=== PATIENT | male | born 1945 | race Two or more races ===

== ENCOUNTER 2019-11-19 06:49 | Inpatient (IN) | payer OTHER, SELFPAY ==
[~2019-11-19] VITALS: Ht 160 cm; Wt 87.0 kg
[2019-11-19] MEDS ORDERED: DEXTROSE (50%) 50ML SYRG IV ONE ×2 (07:15→11:15)
[2019-11-19] MEDS ORDERED: ACETAMINOPHEN 325 MG TAB PO ONE (07:15)
[2019-11-19] MEDS ORDERED: AZITHROMYCIN 500MG/ 250ML 250 ML IV ONE (07:15)
[2019-11-19] MEDS ORDERED: cefTRIAXone 1GM/50ML D5W 50 ML IV ONE (07:15)
[2019-11-19 07:47] LABS: Lactic Acid w/Reflex 4.4 mmol/L (0.4-2.0)
[2019-11-19 09:50] LABS: Basophils # (auto) 0 10 ^3/uL (0-0.2); Eosinophils # (auto) 0 10 ^3/uL (0-0.8); Hematocrit 32.3 % (41.0-53.0); Hemoglobin 11.1 g/dL (13.5-17.5); Monocytes # (auto) 0.1 10 ^3/uL (0-1.3); Neutrophils # (auto) 0.3 10 ^3/uL (1.6-8.6)
[2019-11-19 09:52] LABS: Basophils % (auto) 0.8 % (0.0-2.0); Lymphocytes # (auto) 0.4 10 ^3/uL (0.4-5.4); Lymphocytes % (auto) 51.8 % (10.0-50.0); Mean Corpuscular Hemoglobin 28.9 pg (28.0-32.0); Mean Corpuscular Hgb Conc. 34.5 g/dL (32.0-36.0); Mean Corpuscular Volume 83.8 fL (80.0-100.0); Neutrophils % (auto) 38.4 % (37.0-80.0); Nucleated Red Blood Cells % 0.8 %; Red Blood Cells 3.85 10^6/uL (4.5-5.90)
[2019-11-19 09:58] LABS: Albumin 2.5 g/dL (3.4-5.0); Calcium 7.3 mg/dL (8.5-10.1); Potassium 4.6 mmol/L (3.5-5.1)
[2019-11-19 10:00] LABS: Platelet Count (auto) 29 10^3/uL (140-450); White Blood Cell 0.7 10^3/uL (4.4-10.8)
[2019-11-19 10:04] LABS: BUN/Creatinine Ratio 18.9; Bilirubin, Total 1.8 mg/dL (0.2-1.0); Total Protein 5.1 g/dL (6.4-8.2)
[2019-11-19] MEDS ORDERED: NOREPINEPHRINE 8 MG/250ML KIT 250 ML IV ONE (10:28)
[2019-11-19] MEDS: NOREPINEPHRINE 8 MG/250ML KIT 250 ML IV SCH (10:45)
[2019-11-19] MEDS ORDERED: DEXTROSE 50% SYRINGE 50 ML IV ONE (10:47)
[2019-11-19] MEDS ORDERED: NOREPINEPHRINE 8 MG/250ML KIT 250 ML IV SCH (10:49)
[2019-11-19] MEDS ORDERED: SODIUM BICARBONATE 50ML VIAL 150 ML in D5W 5% 1,000 ML IV SCH (11:00)
[2019-11-19] MEDS ORDERED: SODIUM CHLORIDE 0.9% 1,000 ML IV ONE (11:00)
[2019-11-19] MEDS ORDERED: MORPHINE SULF INJ 2 MG/ML SYRINGE 1ML IV PRN ×2 (11:00)
[2019-11-19] MEDS ORDERED: NITROGLYCERIN 0.4 MG SL TAB SL PRN (11:00)
[2019-11-19] MEDS ORDERED: ONDANSETRON HCL 4 MG/2 ML VIAL IV PRN (11:00)
[2019-11-19] MEDS ORDERED: VANCOMYCIN PER PHARMACY 0 MG IV SCH (11:00)
[2019-11-19] MEDS ORDERED: ACETAMINOPHEN 500 MG TAB PO PRN (11:15)
[2019-11-19] MEDS: ACCU-CHEK COMFORT CURVE STRIP VI SCH ×2 (12:19→17:23)
[2019-11-19] MEDS: VANCOMYCIN 1GM/250ML 250 ML IV SCH (12:19)
[2019-11-19] MEDS: metroNIDAZOLE 500MG/100ML 100 ML IV SCH ×2 (14:00→22:00)
[2019-11-19] MEDS: ACETAMINOPHEN 500 MG TAB PO PRN (15:35)
[2019-11-19 16:33] LABS: Protein, Urine 27.7 mg/dL (0.0-11.9)
[2019-11-19] MEDS: SODIUM BICARBONATE 50ML VIAL 100 ML in D5W/SOD CHL 0.45% 1,000 ML IV SCH (17:23)
[2019-11-19] MEDS ORDERED: PRE1T PO (18:38)
[2019-11-19] MEDS ORDERED: HYDR-531 PO (18:38)
[2019-11-19] MEDS ORDERED: TAM04C PO (18:38)
[2019-11-19] MEDS ORDERED: TER5T PO (18:38)
[2019-11-19] MEDS ORDERED: HYDR-4188 PO (18:38)
[2019-11-19] MEDS: HYDROcodone-ACET 5/325MG TAB PO PRN (22:06)
[2019-11-20] VITALS (64 sets, daily range): BP systolic 72–120; BP diastolic 39–101
[2019-11-20] MEDS: SODIUM BICARBONATE 50ML VIAL 100 ML in D5W/SOD CHL 0.45% 1,000 ML IV SCH (02:30)
[2019-11-20] MEDS: NOREPINEPHRINE 8 MG/250ML KIT 250 ML IV SCH ×3 (02:37→21:03)
--- NOTE | 2019-11-20 03:30 | NUR ---
received pt on unit pt brought to icu on stretcher from er. vital signs as follows: hr:130, rr:31, sp02 91% on room air, bp 103/57 on 16 mcg of levo, temp is 101.7 ax and 100.6 orally. nasal cannula 2l initiated once pt transferred to icu bed. mrsa swab sent. pt reports pain 9/10 on left side of body. breath sounds clear with labored breathing noted. will continue to monitor and assess pt.
[2019-11-20] MEDS: ACETAMINOPHEN 500 MG TAB PO PRN ×2 (04:43→11:32)
[2019-11-20 05:27] LABS: Urine Bacteria FEW /hpf (None Seen); Urine Blood 2+ /uL (Negative); Urine Mucus FEW (None Seen); Urine Specific Gravity 1.015 (1.001-1.035); Urine WBC 3 /hpf (0 - 3)
--- NOTE | 2019-11-20 05:30 | NUR ---
EQUIPMENT MALFUNCTION WITH BP MONITOR. TROUBLESHOOTED PROBLEM. UNABLE TO OBTAIN BP READINGS. NOW READING APPROPRIATELY AND CYCLING Q15 MINUTES.
--- NOTE | 2019-11-20 05:37 | NUR ---
MED REC PT REPORTS TAKING NO HOME MEDICATIONS. WILL FOLLOW UP. Addendum: 11/20/19 at 0532 by OLIMPIA WHITTAKER RN RN Amended: Links added.
[2019-11-20] MEDS: ACCU-CHEK COMFORT CURVE STRIP VI SCH ×5 (06:00→23:41)
[2019-11-20] MEDS: metroNIDAZOLE 500MG/100ML 100 ML IV SCH (06:00)
[2019-11-20] MEDS ORDERED: SODIUM BICARBONATE 8.4 % INJ 50ML VIAL IV ONE ×2 (06:17→19:40)
--- NOTE | 2019-11-20 07:45 | NUR ---
Opening Shift Note Assumed care of patient, resting with eyes closed, respirations in the 20's even and unlabored. No S/S of SOB or pain noted. Patient currently on COVID 19 isolation as ordered by [facility], following CDC guidelines, awaiting COVID 19 results. Patient instructed on POC and to call for assist PRN, will continue to monitor for changes Q1hr and PRN. Call light within reach, fall and safety precautions in place.
--- NOTE | 2019-11-20 08:45 | NUR ---
PICC LINE NURSE AT BEDSIDE/NO LABS PER ICU DIRECTOR "NURSES ARE TO DRAW LABS PERSONALLY FOR RULE OUT COVID PATIENTS". ORACLE SPECIALIST AND THIS NURSE WERE UNABLE TO DRAW LABS. SHUBHAM, PICC LINE NURSE REPORTED TO THIS NURSE "UNABLE TO INSERT PICC LINE SINCE YESTERDAY DUE TO LOW PLATELET LEVEL". SHUBHAM AWARE THAT WE ARE NOT ABLE TO DRAW LABS AT THIS TIME. WILL BE NOTIFIED.
[2019-11-20] MEDS ORDERED: cefTRIAXone 1GM/50ML D5W 50 ML IV SCH (09:00)
--- NOTE | 2019-11-20 11:00 | NUR ---
LAMAS Lamas catheter insertion As ordered by MD. Patient educated on catheter and reason for insertion. All questions answered. Lamas catheter 16 gauge Faroese inserted with clean sterile technique. Patient tolerated well, noted scant amount of dark kasey, cloudy urine.
--- NOTE | 2019-11-20 11:15 | NUR ---
COOLING MEASURES ELEVATED RECTAL TEMPERATURE 102.7 - PATIENT MEDICATED ORDERED BY MD AND COOLING MEASURES APPLIED. MD WILL BE MADE AWARE.
[2019-11-20] MEDS: VANCOMYCIN 1GM/250ML 250 ML IV SCH (11:23)
--- NOTE | 2019-11-20 11:46 | NUR ---
PAGED HOSPITALIST ELINA TO NOTIFY OF PATIENT'S CURRENT STATUS, AWAITING RESPONSE.
[2019-11-20] MEDS ORDERED: LORazepam 2MG/ML-1ML VIAL ONE (15:03)
--- NOTE | 2019-11-20 15:13 | NUR ---
CENTRAL LINE PLACEMENT ELINA ONTIVEROS AT BEDSIDE FOR CENTRAL LINE PLACEMENT, PROCEDURE EXPLAINED IN DETAIL BY BRANDIN ONTIVEROS. PATIENT VERBALIZED UNDERSTANDING AND SIGNED CONSENT. ORDERS FOR ONE TIME DOSE ATIVAN 1 MG IV RECEIVED AND ADMINISTERED. VSS AND DOCUMENTED.
[2019-11-20] MEDS ORDERED: FOLIC ACID 1 MG TAB PO ONE (15:45)
[2019-11-20] MEDS ORDERED: PRENATAL VITAMIN TAB PO ONE (15:45)
[2019-11-20] MEDS ORDERED: THIAMINE 100mg/ml INJ (200mg/2ml VIAL) IV ONE (15:45)
--- NOTE | 2019-11-20 15:45 | NUR ---
Lew catheter removed/re-insertion Prior to central line placement, patient pulled lew catheter out. Lew catheter re-inserted after notifying MD. Patient once again educated on catheter and reason for insertion. All questions answered. Lew catheter 16 inserted via sterile technique. A total of 60 mls empted from lew catheter prior to tossing in trash.
[2019-11-20] MEDS ORDERED: MULTIPLE VITAMIN TAB PO ONE (16:00)
--- NOTE | 2019-11-20 16:36 | NUR ---
BIAS CUTTING MACHINE OPERATOR AT BEDSIDE
[2019-11-20] MEDS: HYDROcodone-ACET 5/325MG TAB PO PRN (16:58)
[2019-11-20] MEDS ORDERED: ETOMIDATE (2MG/ML) 20ML VIAL IV ONE (17:06)
[2019-11-20] MEDS ORDERED: SUCCINYLCHOLINE CHLORIDE 20 MG/ML 10ML VIAL IV ONE (17:06)
[2019-11-20] MEDS ORDERED: ROCURONIUM 10MG/ML 10ML VIAL IV ONE (17:06)
[2019-11-20] MEDS ORDERED: MIDAZOLAM DRIP 50 mg/50mL 50 ML IV ONE (17:07)
--- NOTE | 2019-11-20 17:20 | NUR ---
INTUBATION DR ALTMAN NOTIFIED OF PATIENT'S CONTINUED INCREASE RESPIRATIONS AND HEART RATE AND INCREASE IN ALOC. NO ABG ORDERS RECEIVED AT THIS TIME, DR ALTMAN ORDERED EMERGENT INTUBATION. ETOMIDATE 10 MLS ROCURONIUM 5 MLS VERSED IV DRIP STATED. PER DR ALTMAN - KEEP AT RASS OF -4 (DEEP SEDATION).
--- NOTE | 2019-11-20 17:22 | NUR ---
PT INTUBATED BY DR. ALTMAN WITH AN 8.0 ETT AND SECURED BY SHAI AT 24 UPPER LIP. CUFF PRESSURE IS FIRM. TUBE PLACEMENT CONFIRMED BY BILATERAL BREATH SOUNDS, BILATERAL CHEST RISE, AND COLOR CHANGE WITH CAPNOMETER.
[2019-11-20 17:47] LABS: Hemoglobin 11.1 g/dL (13.5-17.5)
[2019-11-20 17:49] LABS: Hematocrit 32.1 % (41.0-53.0); Mean Corpuscular Hemoglobin 28.7 pg (28.0-32.0); Mean Corpuscular Hgb Conc. 34.5 g/dL (32.0-36.0); Red Blood Cells 3.87 10^6/uL (4.5-5.90); Red Cell Distribution Width 17.5 % (11.8-14.3)
[2019-11-20 18:03] LABS: Platelet Count (auto) 19 10^3/uL (140-450); White Blood Cell 0.5 10^3/uL (4.4-10.8)
--- NOTE | 2019-11-20 18:03 | NUR ---
CRITICAL LABS PAGED HEMATOLOGY TO NOTIFY OF WBC AND PLATELET LEVEL, MESSAGE LEFT, AWAITING RESPONSE. PAGED HOSPITALIST TO NOTIFY OF CRITICAL LABS, AWAITING RESPONSE.
[2019-11-20 18:05] LABS: Band Neutrophils % (manual) 0; Basophils % (manual) 0 (0.0-2.0); Blast Cells 0; Eosinophils % (manual) 0 (0-7); Metamyelocytes % 0; Myelocytes % 0; Promyelocytes % 0; Reactive Lymphocytes 0
[2019-11-20 18:12] LABS: Lactic Acid w/Reflex 6.4 mmol/L (0.4-2.0)
--- NOTE | 2019-11-20 18:13 | NUR ---
RETURN CALL FROM HOSPITALIST DR SAMSON UPDATED ON PATIENT'S CRITICAL LABS AND CURRENT STATUS. DR SAMSON STATED "I WILL CALL DR VARGAS AND CALL YOU BACK".
--- NOTE | 2019-11-20 18:19 | NUR ---
Family updated on pt status Family of DILLON SUNG updated on patient's status and condition after password verification. All questions and concerns addressed. Patient's granddaughter Jinny verbalized understanding.
[2019-11-20 18:23] LABS: Albumin 1.9 g/dL (3.4-5.0); Calcium 6.6 mg/dL (8.5-10.1); Magnesium 1.6 mg/dL (1.6-2.6); Potassium 4.3 mmol/L (3.5-5.1)
--- NOTE | 2019-11-20 18:24 | NUR ---
RETURN CALL FROM HOSPITALIST DR SAMSON STATED HE SPOKE WITH DR VARGAS AND DR VARGAS DOES NOT WANT ANY PLATELETS TO BE ADMINISTERED AT THIS TIME. ORDERS RECEIVED FOR SOLU-MEDROL 60 MG IV Q8H.
--- NOTE | 2019-11-20 18:26 | NUR ---
CALL RECEIVED FROM LAB TO REPORT D DIMER OF 8.39 BUT NOT ABLE TO GET A PT/INR. WILL REDRAW.
[2019-11-20 18:35] LABS: BUN/Creatinine Ratio 17.2; Bilirubin, Total 3.3 mg/dL (0.2-1.0); Phosphorus 3.7 mg/dL (2.5-4.90)
--- NOTE | 2019-11-20 18:35 | NUR ---
Respiratory note: TITRATED FIO2 TO 60% PT TOLERATING WELL. RN NOTIFY OF CHANGE.
--- NOTE | 2019-11-20 18:39 | NUR ---
CRITICAL/PAGED HOSPITALIST/CALL FROM PULMONOLOGY R.T. HAD LEFT MESSAGE FOR DR ALTMAN REGARDING ABG RESULTS. DR ALTMAN RETURNED CALL AND UPDATED ON ABG POST INTUBATION. ORDERS FOR D5W WITH 3 AMPS OF SODIUM BICARB RECEIVED. REGARDING ADDING SECOND VASOPRESSOR, DR ALTMAN RECOMMENDS VASOPRESSIN 0.04. SPOKE WITH DR SAMSON TO NOTIFY OF CRITICAL TROPONIN LEVEL AND PENDING REPEAT COAGULATIONS - DR SAMSON RECOMMENDED DR GRAMAJO TO BE PAGED, MESSAGE LEFT FOR DR GRAMAJO, AWAITING RESPONSE.
[2019-11-20] MEDS: VASOPRESSIN 50 UNITS in D5W 5% 247.5 ML IV SCH (18:45)
[2019-11-20] MEDS ORDERED: D5W 5% 1,000 ML IV SCH (18:45)
[2019-11-20] MEDS: SODIUM BICARBONATE 50ML VIAL 150 ML in D5W 5% 1,000 ML IV SCH (19:00)
--- NOTE | 2019-11-20 19:00 | NUR ---
OPENING NOTE RECEIVED REPORT FROM DAY SHIFT RN AND ASSUMED CARE OF PT. PT IS INTUBATED AND SEDATED WITH A MECHANICAL VENTILATOR IN PLACE. VERSED RUNNING AT 15 MG/HR TO RIGHT TLC. PT RR AND EFFORT ARE INCREASING. LUNGS ARE CLEAR/DIMINISHED TO AUSCULTATION. HR IS ST 120'S. PT ON LEVOPHED AT 30 MCG RUNNING TO RIGHT TLC. SODIUM BICARB GTT IN PLACE PER MD ORDER. OG TUBE CONNECTED TO LIS WITH MINIMAL BROWN DRAINAGE NOTED. LAMAS CATHETER IN PLACE AND DRAINING TO GRAVITY APPROPRIATELY. BED IS LOCKED AND IN THE LOWEST POSITION, SIDE RAILS UP, AND BED ALARM SET. COOLING MEASURES TO BE INITIATED FOR INCREASING TEMPERATURE. WILL CONTINUE TO MONITOR AND ASSESS PT.
[2019-11-20] MEDS: FILGRASTIM(TBO) 480 MCG/0.8 ML SYRG SC SCH (19:26)
[2019-11-20] MEDS: MEROPENEM 1GM IVPB 100 ML IV SCH (19:27)
--- NOTE | 2019-11-20 19:30 | NUR ---
END OF SHIFT NOTE PATIENT MECHANICALLY VENTILATED, SEDATED ON VASOPRESSORS. HEART RATE INCREASED AND RESPIRATIONS. SEDATION INCREASED PER PROTOCOL AND DR ALTMAN'S ORDER TO KEEP PATIENT ON RASS -4 DEEP SEDATION. ENDORSED CONTINUED CARE TO SPINNING FRAME CLEANER RN.
[2019-11-20 19:59] LABS: Lymphocytes % (manual) 54 (10.0-50.0); Monocytes % (manual) 4 (0-12)
[2019-11-20] MEDS: MIDAZOLAM DRIP 50 mg/50mL 50 ML IV SCH (20:00)
--- NOTE | 2019-11-20 20:06 | NUR ---
COOLING MEASURES INITIATED FOR TEMP OF 102.2. COOLING BLANKET IN PLACE. MONITORING TEMP RECTALLY. WILL CONTINUE TO MONITOR.
[2019-11-20] MEDS: chlordiazePOXIDE HCL 25 MG CAP PO SCH (20:30)
[2019-11-20] MEDS: fentaNYL Drip 2500mCg/250mlNS 250 ML IV SCH (20:44)
--- NOTE | 2019-11-20 20:47 | NUR ---
STARTED FENTANYL FOR INCREASED WOB AND RR IN BETWEEN 31-35 BREATHS/MIN. WILL TITRATE ACCORDINGLY.
--- NOTE | 2019-11-20 21:10 | NUR ---
12 LEAD 12 LEAD EKG PREFORMED FOR HR IN 130'S. UNABLE TO READ RHYTHM APPROPRIATELY ON HEALTH SCIENCE SPECIALIST, BUT 12 LEAD SAYS SINUS TACH AND NOT A FIB. AQUA AMMONIA OPERATOR AGREES. WILL CONTINUE TO MONITOR AND ASSESS RHYTHM.
[2019-11-20 21:17] LABS: Partial Thromboplastin Time 39.7 sec (23.64-32.05)
[2019-11-20 21:43] LABS: Partial Thromboplastin Time 38.9 sec (23.64-32.05)
--- NOTE | 2019-11-20 21:55 | NUR ---
PAGED DR. ALTMAN CALLED MD TO MAKE HIM AWARE OF PTS INCREASED WORK OF BREATHING AND HIGH RR IN THE 30'S EVEN THOUGH VENT IS SET AT 24. MADE MD AWARE OF CURRENT SEDATION DOSAGES. AWAITING CALL BACK.
[2019-11-20 22:42] LABS: INR 2.34 (0.9-1.15)
[2019-11-20 22:42] LABS: INR 1.07 (0.9-1.15)
[2019-11-20] MEDS: methylPREDNISolone SOD SUCC 125 MG/2 ML VL IV SCH (22:43)
[2019-11-21] VITALS (106 sets, daily range): BP systolic 50–145; BP diastolic 27–64
--- NOTE | 2019-11-21 01:01 | NUR ---
DRESSING CHANGES PREFORMED DRESSING CHANGES TO LEFT ARM/RIGHT ARM SQUAMOUS/BASAL CELL CARCINOMA SITES USING STERILE TECHNIQUE. GAUZE, ABDOMINAL PAD, KERLEX APPLIED. OLD DRESSINGS SOILED WITH RED/SANGUINOUS DRAINAGE, NO ODOR NOTED. TIMED, DATED, INITIALED. TOOK PHOTOS WITH CAMERA FOR WOUND CARE.
--- NOTE | 2019-11-21 01:35 | NUR ---
TEMP ASSESSMENT TEMPERATURE HAS BEEN TRENDING DOWNWARD SINCE COOLING MEASURES INITIATED. CURRENTLY 100.2. NO TYLENOL GIVEN DUE TO COAGULATION STUDIES, PLT, AND LFT RESULTS. WILL CONTINUE TO MONITOR AND ASSESS PT.
--- NOTE | 2019-11-21 02:45 | NUR ---
TEMP REASSESSMENT PT TEMPERATURE HAS REACHED 98.6. COOLING BLANKET TURNED OFF AND COLD WASHCLOTHS REMOVED.
--- NOTE | 2019-11-21 03:57 | NUR ---
PT BATH GAVE PT CHG BATH. APPLIED LOTION TO LOWER LIMBS AND FEET ON AREAS OF DRYNESS. PARTIAL JAYCEE CHANGE DONE. ORAL CARE PREFORMED- SMALL PINK TINGED SECRETIONS NOTED FROM MOUTH.
[2019-11-21] MEDS: SODIUM BICARBONATE 50ML VIAL 150 ML in D5W 5% 1,000 ML IV SCH ×3 (04:12→22:36)
[2019-11-21 04:31] LABS: Albumin 1.6 g/dL (3.4-5.0); Calcium 6.4 mg/dL (8.5-10.1); Potassium 4.8 mmol/L (3.5-5.1)
[2019-11-21 04:35] LABS: Bilirubin, Total 3.7 mg/dL (0.2-1.0); Total Protein 3.5 g/dL (6.4-8.2)
[2019-11-21] MEDS: MEROPENEM 1GM IVPB 100 ML IV SCH (05:07)
[2019-11-21] MEDS: methylPREDNISolone SOD SUCC 125 MG/2 ML VL IV SCH ×3 (06:13→22:18)
[2019-11-21] MEDS: chlordiazePOXIDE HCL 25 MG CAP PO SCH ×2 (06:13)
[2019-11-21] MEDS: ACCU-CHEK COMFORT CURVE STRIP VI SCH ×3 (06:13→18:05)
[2019-11-21] MEDS: PHENYLEPHRINE IV 250 ML IV SCH ×2 (09:05→16:47)
[2019-11-21] MEDS ORDERED: PRENATAL VITAMIN TAB PO SCH (10:00)
--- NOTE | 2019-11-21 10:16 | NUR ---
PULMONOLOGY AT BEDSIDE DR ALTMAN UPDATED ON PATIENT'S STATUS AND NEED TO ADD THIRD VASOPRESSOR. DR ALTMAN REVIEWED CHART AND PERFORMED ULTRASOUND AT BEDSIDE TO RULE OUT PLEURAL EFFUSION. PER MD, NO PLEURAL EFFUSION SEEN POSSIBLY PNEUMONIA. NO FURTHER ORDERS GIVEN AT THIS TIME.
[2019-11-21 11:07] LABS: Hemoglobin 9.7 g/dL (13.5-17.5)
[2019-11-21 11:09] LABS: Hematocrit 28.5 % (41.0-53.0); Mean Corpuscular Hemoglobin 28.6 pg (28.0-32.0); Mean Corpuscular Hgb Conc. 34.1 g/dL (32.0-36.0); Platelet Count (auto) 26 10^3/uL (140-450); Red Cell Distribution Width 17.9 % (11.8-14.3)
[2019-11-21] MEDS: MIDAZOLAM DRIP 50 mg/50mL 50 ML IV SCH (11:15)
[2019-11-21 11:25] LABS: Albumin 1.1 g/dL (3.4-5.0); Potassium 4.3 mmol/L (3.5-5.1)
[2019-11-21 11:29] LABS: BUN/Creatinine Ratio 15.8; Bilirubin, Total 3.1 mg/dL (0.2-1.0); Total Protein 2.6 g/dL (6.4-8.2)
[2019-11-21 11:34] LABS: Calcium 5.3 mg/dL (8.5-10.1)
[2019-11-21 11:42] LABS: White Blood Cell 1.9 10^3/uL (4.4-10.8)
[2019-11-21 11:43] LABS: Basophils % (manual) 0 (0.0-2.0); Blast Cells 0; Eosinophils % (manual) 0 (0-7); Myelocytes % 0; Promyelocytes % 0; Reactive Lymphocytes 0
[2019-11-21 11:45] LABS: INR 2.76 (0.9-1.15); Partial Thromboplastin Time 26.2 sec (23.64-32.05)
--- NOTE | 2019-11-21 11:45 | NUR ---
WOUND CARE NOTE: IN TO SEE PATIENT AT THIS TIME PER WOUND CONSULT REQUEST. PATIENT'S BEDSIDE NURSE STATES THAT PATIENT IS TOO UNSTABLE TO SEE AT THIS TIME. THERE WERE WOUND PHOTOS TAKEN AT TIME OF ADMIT FOR REFERENCE BY BEDSIDE NURSE. PATIENT ADMITTED TO [facility] WITH DIAGNOSIS OF SEPTIC SHOCK. HE REMAINS INTUBATED, SEDATED, ON MULTIPLE VASOPRESSORS CURRENTLY. 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 CURRENTLY, HE CONTINUES TO HAVE MULTIPLE LESIONS, SOME OF WHICH ARE OPEN AND/OR DRAINING. LEFT FOREARM HAS OPEN SKIN TEAR TO THE LEFT ELBOW/FOREARM. INTRAGLUTEAL FOLD SKIN IS BRIGHT RED WITH INTERTRIGO/MASD. RECOMMEND: FREQUENT TURN SCHEDULE Q2 HOURS, PRN CONDITION PERMITS, WITH PRESSURE REDISTRIBUTION USING PILLOWS/WEDGES, BID/PRN APPLICATION WITH MOISTURE BARRIER CREAM, OPTIFOAM GENTLE SACRAL DRESSING- WITH OPTIFOAM GENTLE SACRAL DRESSING TO UPPER MEDIAL SACRUM, DIETARY CONSULT, CONTINUED MONITORING BY WOUND CARE TEAM. SKIN WOUND CARE PLAN IMPLEMENTED. Addendum: 11/21/19 at 1524 by Randee Forrest RN Amended: Links added.
[2019-11-21] MEDS: DOPamine 1600MCG/ML D5W 250 ML IV SCH (11:52)
[2019-11-21] MEDS: PANTOPRAZOLE 40 MG/10 ML VIAL INJ IV SCH (11:54)
[2019-11-21 11:55] LABS: Band Neutrophils % (manual) 21; Lymphocytes % (manual) 6 (10.0-50.0); Metamyelocytes % 4; Monocytes % (manual) 4 (0-12)
[2019-11-21] MEDS: FOLIC ACID 1 MG TAB PO SCH (11:57)
[2019-11-21] MEDS: AZITHROMYCIN 500MG/ 250ML 250 ML IV SCH (12:04)
[2019-11-21] MEDS: THIAMINE 100mg/ml INJ (200mg/2ml VIAL) IV SCH (12:05)
[2019-11-21] MEDS: FILGRASTIM(TBO) 480 MCG/0.8 ML SYRG SC SCH (12:06)
[2019-11-21] MEDS: MULTIPLE VITAMIN TAB PO SCH (12:09)
[2019-11-21] MEDS ORDERED: CALCIUM GLUC 4.65meq/50ml D5AE 50 ML IV ONE ×4 (13:45→14:00)
[2019-11-21] MEDS: NOREPINEPHRINE 8 MG/250ML KIT 250 ML IV SCH (15:46)
[2019-11-21] MEDS: VANCOMYCIN 1GM/250ML 250 ML IV SCH (15:57)
[2019-11-21] MEDS: VASOPRESSIN 50 UNITS in D5W 5% 247.5 ML IV SCH (16:27)
[2019-11-21] MEDS: MEROPENEM 1GM IVPB 50 ML IV SCH (18:05)
[2019-11-21] MEDS ORDERED: DEXTROSE (50%) 50ML SYRG IV PRN (19:15)
--- NOTE | 2019-11-21 19:30 | NUR ---
OPENING NOTE RECEIVED REPORT FROM DAY SHIFT RN AND ASSUMED CARE OF PT. PT IS INTUBATED AND SEDATED WITH A MECHANICAL VENTILATOR IN PLACE. FENTANYL RUNNING AT 175 MCG TO RIGHT TLC. PT RR AND EFFORT ARE IN SYNC WITH VENTILATOR, NO SIGNS OF DISTRESS NOTED. LUNGS ARE CLEAR/DIMINISHED TO AUSCULTATION. HR IS SR 60'S-70'S. PT ON LEVOPHED AT 30 MCG WITH DOPAMINE AT 5 MCG AND VASO AT 0.02 UNITS RUNNING TO RIGHT TLC. SODIUM BICARB GTT IN PLACE PER MD ORDER. OG TUBE CONNECTED TO LIS WITH MINIMAL BROWN DRAINAGE NOTED. LAMAS CATHETER IN PLACE AND DRAINING TO GRAVITY APPROPRIATELY. BED IS LOCKED AND IN THE LOWEST POSITION, SIDE RAILS UP, AND BED ALARM SET. OVERHEAD WARMING LAMP IS ON TO INCREASE PT TEMPERATURE. WILL CONTINUE TO MONITOR AND ASSESS PT.
[2019-11-21] MEDS: fentaNYL Drip 2500mCg/250mlNS 250 ML IV SCH (19:53)
--- NOTE | 2019-11-21 20:24 | NUR ---
SPOKE WITH PARACHUTIST/COMBATANT DIVER QUALIFIED HOSPITALIST DR ART RETURNED CALL AND AWARE OF BLOOD SUGARS. ORDERS FOR HGBA1C RECEIVED FOR TOMORROW AM. PT HAS NO HISTORY OF DM, NO INSULIN COVERAGE AT THIS TIME, NOTIFY HOSPITALIST OF A1C RESULTS TOMORROW.
--- NOTE | 2019-11-21 20:50 | NUR ---
FAMILY CALL CALLED, ROBYN, PTS GRANDDAUGHTER AND POA TO UPDATE HER ON PT CONDITION. MADE HER AWARE OF FAMILY VISITING HOURS AND CONDITIONS OF VISITATION. VERBALIZED UNDERSTANDING. WILL UPDATE FAMILY ON ANY CHANGES.
--- NOTE | 2019-11-21 23:03 | NUR ---
DRESSING CHANGE STERILE DRESSING CHANGE PREFORMED TO LEFT ARM, OLD DRESSING WAS SOILED WITH SANGUINOUS DRAINAGE. DRESSING IS TIMED, DATED, AND INITIALED.
[2019-11-22] VITALS (61 sets, daily range): BP systolic 88–135; BP diastolic 50–64
[2019-11-22] MEDS ORDERED: InsuLIN REG 1unit/0.01ml Soln (100units/ml) SC SCH
[2019-11-22] MEDS ORDERED: ACCU-CHEK COMFORT CURVE STRIP VI SCH
[2019-11-22] MEDS: PHENYLEPHRINE IV 250 ML IV SCH ×3 (01:07→17:47)
--- NOTE | 2019-11-22 01:45 | NUR ---
PT BATH CHG BATH GIVEN. LOTION APPLIED TO LOWER EXTREMITIES. FULL JAYCEE CHANGE DONE. SUCTION CANISTERS CHANGED. ORAL CARE PREFORMED. APPLIED Z GUARD TO SACRAL AREA AND OPTIFOAM DRESSING REPLACED.
--- NOTE | 2019-11-22 03:00 | NUR ---
AM LABS DRAWN FROM RIGHT FEMORAL TLC AND SENT.
[2019-11-22 04:12] LABS: Basophils # (auto) 0 10 ^3/uL (0-0.2); Eosinophils # (auto) 0 10 ^3/uL (0-0.8); Lymphocytes # (auto) 0.1 10 ^3/uL (0.4-5.4); Mean Corpuscular Hgb Conc. 34.6 g/dL (32.0-36.0); Monocytes # (auto) 0.1 10 ^3/uL (0-1.3); Neutrophils # (auto) 2.7 10 ^3/uL (1.6-8.6); White Blood Cell 2.9 10^3/uL (4.4-10.8)
[2019-11-22 04:23] LABS: Hematocrit 34.2 % (41.0-53.0); Hemoglobin 11.8 g/dL (13.5-17.5); Lymphocytes % (auto) 3.8 % (10.0-50.0); Mean Corpuscular Hemoglobin 28.1 pg (28.0-32.0); Mean Corpuscular Volume 81.1 fL (80.0-100.0); Monocytes % (auto) 2.9 % (0.0-12.0); Neutrophils % (auto) 92.3 % (37.0-80.0); Nucleated Red Blood Cells % 0.4 %; Red Blood Cells 4.21 10^6/uL (4.5-5.90); Red Cell Distribution Width 17.5 % (11.8-14.3)
[2019-11-22 04:30] LABS: Albumin 1.5 g/dL (3.4-5.0); Calcium 6.2 mg/dL (8.5-10.1); Magnesium 1.8 mg/dL (1.6-2.6); Potassium 4.8 mmol/L (3.5-5.1)
[2019-11-22 04:33] LABS: BUN/Creatinine Ratio 15.2; Bilirubin, Total 5.3 mg/dL (0.2-1.0); Phosphorus 6.6 mg/dL (2.5-4.90); Total Protein 3.5 g/dL (6.4-8.2)
[2019-11-22 05:11] LABS: Platelet Count (auto) 15 10^3/uL (140-450)
[2019-11-22] MEDS: methylPREDNISolone SOD SUCC 125 MG/2 ML VL IV SCH ×3 (05:44→22:00)
[2019-11-22] MEDS: MEROPENEM 1GM IVPB 50 ML IV SCH (05:44)
[2019-11-22 06:06] LABS: Immunoglobulin G, Serum 547 mg/dL (603-1613)
--- NOTE | 2019-11-22 06:06 | NUR ---
PAGE PAGED DR. SAMSON TO MAKE HIM AWARE OF PTS LAST PLATELET COUNT OF 15 AND OTHER ABNORMAL LAB/ ELECTROLYTE RESULTS. AWAITING CALL BACK.
--- NOTE | 2019-11-22 06:46 | NUR ---
FAMILY CALL CALLED ROBYN, PTS GRANDDAUGHTER. OBTAINED CORRECT PASSWORD. UPDATED HER ON PT CONDITION, DECREASING VASOPRESSOR THERAPY, AND PLAN OF CARE. VERBALIZED UNDERSTANDING AND EXPRESSED GRATITUDE.
--- NOTE | 2019-11-22 07:30 | NUR ---
REPORT REPORT RECEIVED FROM DHARA RNOLIMPIA. PT RESTING IN BED , EYES CLOSED, IN NO DISTRESS, INTUBATED AND SEDATED . CONTINUE TO MONITOR.
[2019-11-22] MEDS: DOPamine 1600MCG/ML D5W 250 ML IV SCH (07:45)
--- NOTE | 2019-11-22 07:45 | NUR ---
PT TEACHING PT UNABLE TO BENEFIT FROM PT TEACHING DUE TO BEING SEDATED WHILE INTUBATED. Addendum: 11/22/19 at 2034 by Arlen Raman RN Amended: Links added.
--- NOTE | 2019-11-22 07:46 | NUR ---
ASSESSMENT PT LAYING IN BED WITH NO MOVEMENT NOTED. SEDATED ON FENTANYL AND INTUBATED. VENTILATOR SETTINGS OF : 8 FR ETT/ 24 AT THE LIP, AC 24, TV 450, 45% FIO2 AND PEEP OF 5. LUNGS CLEAR THROUGHOUT AND DIMINISHED AT THE BASES POSTERIOR. PRODUCTIVE COUGH WITH CREAMY THICK SECRETIONS FROM ETT AND SMALL AMOUNT OF THIN BLOOD FROM ORAL CARE. TELE SR WITH RARE PAC. PALPABLE PULSES TO ALL EXTREMITIES. EDEMA AND WEEPING NOTED FROM BUE, LEFT GREATER THAN RIGHT. SCDS TO BLE APPLIED. ARTERIAL LINE TO LEFT AXILLARY, SITE BENIGN AND LINE ZEROED. ABD SOFT WITH NO BOWEL SOUNDS NOTED. OGT WITH PLACEMENT VERIFIED BY AUSCULTATION AND WITH DARK CHOCOLATE FLUID RESIDUAL. CONNECTED TO LIS. LAST BM WAS 11/19, PER REPORT. LAMAS CATHETER DRAINING DARK BROWN URINE WITH ONLY 125ML OUTPUT FOR THE GLASS MAKER. SCATTERED SCABS AND ABRASIONS NOTED TO PT'S HEAD , NECK, FACE , LEGS AND ARMS. LARGE BRUISE NOTED TO HIS LEFT FLANK. DRESSINGS TO RFA AND LFA, WITH LFA WEEPING AND LAMBERT AND SOME PINKISH RED FLUID SEEPING THROUGH THE DRESSING. PT TURNED FOR COMFORT. OPTIFOAM DRESSING IN PLACE TO SACRUM WITH REDNESS NOTED TO BUTTOCKS AND Z GUARD CRAM APPLIED. BED IN LOW POSITION AND RAILS UP X4 FOR PT SAFETY. CONTINUE TO MONITOR.
[2019-11-22] MEDS: PANTOPRAZOLE 40 MG/10 ML VIAL INJ IV SCH (10:25)
[2019-11-22] MEDS: FILGRASTIM(TBO) 480 MCG/0.8 ML SYRG SC SCH (10:26)
[2019-11-22] MEDS: THIAMINE 100mg/ml INJ (200mg/2ml VIAL) IV SCH (10:26)
--- NOTE | 2019-11-22 10:26 | NUR ---
ADMINISTERED SCHEDULED MEDS. CONTINUE TO MONITOR.
[2019-11-22] MEDS: FOLIC ACID 1 MG TAB PO SCH (10:27)
[2019-11-22] MEDS: MULTIPLE VITAMIN TAB PO SCH (10:27)
[2019-11-22] MEDS: SODIUM BICARBONATE 50ML VIAL 150 ML in D5W 5% 1,000 ML IV SCH (11:01)
[2019-11-22] MEDS: AZITHROMYCIN 500MG/ 250ML 250 ML IV SCH (11:02)
--- NOTE | 2019-11-22 11:17 | NUR ---
assessment Patient is a 73 year old male who is in ICU on a vent. Per patients granddaughter Jinny prior to admission patient lived home alone and was independent prior to getting sick. Patients PCP is Dr Cristo Nicholson. Patient has a fww and a cane for home use. Per Jinny patient was feeling real weak and fell so family called 911 and patient was brought to ER and admitted. I informed Jinny of patients ss consult for living alone and ETOH. Per Jinny patient does drink 2 drinks per day of Tequila. Per Jinny patient buys his own alcohol when shopping. I informed Jinny I would speak with patient once extubated about ETOH and discharge planning. Jinny verbalized understanding. Addendum: 11/22/19 at 1123 by Chiquita MICHELE Amended: Links added.
[2019-11-22] MEDS ORDERED: PHYTONADIONE (VIT K)10 MG/ML 1ML VIAL SUBCUT ONE ×2 (12:15→16:30)
[2019-11-22] MEDS: NOREPINEPHRINE 8 MG/250ML KIT 250 ML IV SCH (12:45)
--- NOTE | 2019-11-22 13:00 | NUR ---
MD VISIT PT SEEN AND EXAMINED BY DR SAMSON. I UPDATED HIM ON THE PT'S CURRENT LABS AND [id number] , LOW UOP OF 125ML , AND CHOCOLATE BROWN OUTPUT FROM OGT. I ALSO PROVIDED HIM WITH THE PHONE NUMBER OF THE PT'S GRANDDAUGHTER, ROBYN, AND HE DID CALL HER AND DISCUSS THE PT'S CONDITION AND POC. SHE VERIFIED THAT THE PT DID WANT EVERYTHING DONE.
--- NOTE | 2019-11-22 13:32 | NUR ---
PAGED DR Isidro YANEZ TO CLARIFY VITAMIN K ORDER , PER PHARMACY REQUEST. PER ADENIKE PHARMACIST, SQ ADMINISTRATION OF VIT RESULTS IN ERRATIC ABSORPTION AND HE RECOMMENDS EITHER PO OR IVPB ADMINISTRATION.
[2019-11-22] MEDS: VANCOMYCIN 1GM/250ML 250 ML IV SCH (14:27)
--- NOTE | 2019-11-22 16:00 | NUR ---
RECEIVED A CALL BACK FROM DR Isidro YANEZ. SHE DOES NOT WANT TO CHANGE THE ROUTE FOR THE VITAMIN K. NOTIFIED ADENIKE PHARMACIST.
--- NOTE | 2019-11-22 16:13 | NUR ---
Nutrition Assessment Notes Please refer to link for full assessment notes. Est energy needs: 2228-4179 kcals (23-25 kcal/kgBW) Est protein needs: 59-73 gms/day (0.8-1.0 gm/kgBW) d/t age, wounds, Stg IV renal failure Will continue to monitor and reassess prn. Addendum: 11/22/19 at [address] Amended: Links added.
--- NOTE | 2019-11-22 16:44 | NUR ---
PAGED AND SPOKE WITH DR JETT REGARDING WORSENING BUN/CREAT AND LOW UOP . PT CURRENTLY ON IVF OF D5W WITH 3 AMPS OF BICARB AT 125 ML/HR. AM LAB GLUCOSE WAS 281 AND YESTERDAYS HGA1C WAS 5.4. ORDERS RECEIVED FOR URINE FOR NA AND CREATININE, DC IVF WITH BICARB, ONE LITE BOLUS OF NS, ALBUMIN X1 DOSE AND START ACCUCHECKS Q 6HRS WITH LOW DOSE COVERAGE. PER MD, HE DOES NOT NEED TO BE NOTIFIED WITH URINE CREATININE AND SODIUM RESULTS TONIGHT.
[2019-11-22] MEDS ORDERED: SODIUM CHLORIDE 0.9% 1,000 ML IV ONE (17:00)
[2019-11-22] MEDS ORDERED: DEXTROSE (50%) 50ML SYRG IV PRN (17:00)
[2019-11-22] MEDS: ALBUMIN 25% 100 ML IV SCH ×2 (18:00→20:00)
[2019-11-22] MEDS: ACCU-CHEK COMFORT CURVE STRIP VI SCH (18:10)
[2019-11-22 18:13] LABS: Creatinine, Urine 56 mg/dL (30.0-125.0); Sodium Urine 21 mmol/L (40-220)
[2019-11-22] MEDS: InsuLIN REG 1unit/0.01ml Soln (100units/ml) SC SCH (18:25)
[2019-11-22] MEDS: MEROPENEM 500MG IVPB 50 ML IV SCH (18:25)
[2019-11-22] MEDS: VASOPRESSIN 50 UNITS in D5W 5% 247.5 ML IV SCH (18:45)
[2019-11-22] MEDS: fentaNYL Drip 2500mCg/250mlNS 250 ML IV SCH (19:01)
--- NOTE | 2019-11-22 19:20 | NUR ---
BEDSIDE REPORT GIVEN TO NIGHT ERWIN NELSON. Addendum: 11/22/19 at 2037 by Arlen Raman RN ENDORSED ADMINISTRATION OF ALBUMIN WHEN ONE LITER NS BOLUS IS COMPLETE.
[2019-11-22] MEDS: MIDAZOLAM DRIP 50 mg/50mL 50 ML IV SCH (19:53)
--- NOTE | 2019-11-22 20:20 | NUR ---
DISCOVERED NURSING INTERVENTION FOR ADMINISTERING BLOOD PRODUCTS. ORDER FOR PLATELETS PLACED BY DR VARGAS BUT NOT ENTERED FOR BLOOD BANK. ORDER PLACED FOR TYPE AND SCREEN AND TO TRANSFUSE ONE UNIT OF PLATELETS. NOTIFIED NIGHT RNERWIN.
[2019-11-22] MEDS: LORazepam 2MG/ML-1ML VIAL IV PRN (22:38)
--- NOTE | 2019-11-22 22:39 | NUR ---
PT RESTLESS . BUCKING THE VENT , DO NOT WANT TO INCREASE SEDATION AT THIS TIME .
[2019-11-23] VITALS (110 sets, daily range): BP systolic 62–219; BP diastolic 25–191
[2019-11-23] MEDS: DOPamine 1600MCG/ML D5W 250 ML IV SCH ×2 (00:28→14:03)
[2019-11-23] MEDS: PHENYLEPHRINE IV 250 ML IV SCH ×3 (02:07→18:47)
[2019-11-23] MEDS: ACCU-CHEK COMFORT CURVE STRIP VI SCH ×4 (06:00→18:49)
[2019-11-23] MEDS: methylPREDNISolone SOD SUCC 125 MG/2 ML VL IV SCH ×2 (06:00→14:09)
[2019-11-23] MEDS: MEROPENEM 500MG IVPB 50 ML IV SCH ×2 (06:00→17:18)
[2019-11-23] MEDS: InsuLIN REG 1unit/0.01ml Soln (100units/ml) SC SCH ×4 (06:00→18:50)
[2019-11-23] MEDS: fentaNYL Drip 2500mCg/250mlNS 250 ML IV SCH (08:33)
[2019-11-23] MEDS: PANTOPRAZOLE 40 MG/10 ML VIAL INJ IV SCH (10:51)
[2019-11-23] MEDS: THIAMINE 100mg/ml INJ (200mg/2ml VIAL) IV SCH (10:52)
[2019-11-23] MEDS: AZITHROMYCIN 500MG/ 250ML 250 ML IV SCH (10:53)
[2019-11-23] MEDS: NOREPINEPHRINE 8 MG/250ML KIT 250 ML IV SCH ×2 (10:55→20:35)
[2019-11-23] MEDS: MULTIPLE VITAMIN TAB PO SCH (10:56)
[2019-11-23] MEDS: FOLIC ACID 1 MG TAB PO SCH (10:56)
[2019-11-23] MEDS: FILGRASTIM(TBO) 480 MCG/0.8 ML SYRG SC SCH (10:59)
--- NOTE | 2019-11-23 11:39 | NUR ---
DR ALTMAN AT BEDSIDE MD UPDATED ON PATIENT'S STATUS, DRIPS AND NO CXR OR LABS THIS AM. ALSO, PLATELET TRANSFUSION ORDERED BY DR VARGAS WERE NOT ADMINISTERED AND BLOOD CONSENT WAS JUST OBTAINED FROM FAMILY MEMBER VIA TELEPHONE. ORDERS FOR LABS THIS MORNING AND STANDING COMMUNICATION ORDERS FOR DAILY CBC, CMP, XRAY AND ABG RECEIVED. WILL HOLD OFF ADMINISTRATION OF ONE UNIT PLATELETS ORDERED BY DR VARGAS PER DR ALTMAN UNTIL LAB RESULTS RETURN.
[2019-11-23 12:28] LABS: Hematocrit 30.6 % (41.0-53.0); White Blood Cell 2.8 10^3/uL (4.4-10.8)
[2019-11-23 12:30] LABS: Hemoglobin 11.1 g/dL (13.5-17.5); Mean Corpuscular Hemoglobin 28.8 pg (28.0-32.0); Mean Corpuscular Hgb Conc. 36.1 g/dL (32.0-36.0); Mean Corpuscular Volume 79.7 fL (80.0-100.0); Red Blood Cells 3.84 10^6/uL (4.5-5.90); Red Cell Distribution Width 17.5 % (11.8-14.3)
[2019-11-23 12:34] LABS: Platelet Count (auto) 18 10^3/uL (140-450)
[2019-11-23 12:35] LABS: Basophils % (manual) 0 (0.0-2.0); Blast Cells 0; Eosinophils % (manual) 0 (0-7); Metamyelocytes % 0; Promyelocytes % 0; Reactive Lymphocytes 0
[2019-11-23 12:44] LABS: Albumin 1.7 g/dL (3.4-5.0); Potassium 5.2 mmol/L (3.5-5.1)
[2019-11-23 12:48] LABS: BUN/Creatinine Ratio 16.1; Bilirubin, Total 9.4 mg/dL (0.2-1.0); Total Protein 3.5 g/dL (6.4-8.2)
--- NOTE | 2019-11-23 12:50 | NUR ---
WOUND CARE PERFORMED BY TEST TECHNICIAN OMAR BELLE ORDERED BY MD AND WOUND CARE NURSE TO BILATERAL UPPER EXTREMITIES. AREA CLEANSED WITH WOUND CLEANSER, DRESSED WITH OPTIFOAM AND KERLIX. PATIENT TOLERATED WELL.
[2019-11-23 12:52] LABS: Calcium 5.7 mg/dL (8.5-10.1)
--- NOTE | 2019-11-23 13:03 | NUR ---
DR JETT/FAMILY ON PHONE DR JETT AT BEDSIDE, UPDATED ON PATIENT'S STATUS DRIPS AND CRITICAL LABS. DR JETT SPOKE WITH FAMILY OVER THE PHONE TO PROVIDE UPDATE AND PROGNOSIS. FAMILY REQUESTING CONTINUED TREATMENT. DR JETT WILL CONTINUE TO REVIEW PATIENT STATUS AND LABS AND ENTER ORDERS APPROPRIATE. NO VERBAL ORDERS GIVEN AT THIS TIME. Addendum: 11/23/19 at 1309 by Barbie Lewis RN CRITICAL LABS DR JETT AWARE OF LABS AND DISCUSSED WITH FAMILY. NO VERBAL ORDERS GIVEN AT THIS TIME.
--- NOTE | 2019-11-23 13:09 | NUR ---
BERTIN LEMUS CASE MANAGEMENT PROVIDED ON UPDATE PATIENT'S STATUS, VS, DRIPS AND MEDICATIONS.
[2019-11-23 13:10] LABS: Band Neutrophils % (manual) 4; Lymphocytes % (manual) 12 (10.0-50.0); Monocytes % (manual) 18 (0-12); Myelocytes % 1
--- NOTE | 2019-11-23 13:32 | NUR ---
FIRST UNIT PLATELET TRANSFUSING ORDERED BY MD AND ADMINISTERED BY COVERING RN. THIS NURSE AT LUNCH. VSS AND DOCUMENTED.
[2019-11-23] MEDS ORDERED: PHYTONADIONE (VIT K)10 MG/ML 1ML VIAL SUBCUT ONE (13:45)
--- NOTE | 2019-11-23 13:55 | NUR ---
END TRANSFUSION VSS AND DOCUMENTED, NO S/S OF TRANSFUSION REACTION NOTED.
--- NOTE | 2019-11-23 15:05 | NUR ---
HOSPITALIST AT BEDSIDE DR CARBONE UPDATED ON PATIENT'S STATUS, DRIPS, URINE/OGT OUTPUT AND COLOR, CRITICAL LABS AND DR JETT'S COMMENTS REGARDING POSSIBLE DIALYSIS TOMORROW AFTER SPEAKING WITH FAMILY AND FAMILY WANTING CONTINUED CARE. DR SAMSON WILL PLACE ORDERS. DR SAMSON ALSO AWARE OF PHARMACY CALL REGARDING AN ORDER PLACED BY DR Omar YANEZ AND VITAMIN K - MD HAS NOT ASSESSED PATIENT OR DISCUSSED PLAN OF CARE WITH THIS NURSE. DR SAMSON ORDERED PHARMACY MAKE CHANGES TO VITAMIN K ORDER THEY FEEL NECESSARY.
[2019-11-23] MEDS: PANTOPRAZOLE 40mg/50ML NS AE 50 ML IV SCH ×2 (17:20→20:34)
--- NOTE | 2019-11-23 17:39 | NUR ---
SECOND UNIT PLATELETS TRANSFUSING ORDERED BY VSS AND DOCUMENTED, IV SITE PATENT. WILL MONITOR FOR S/S OF TRANSFUSION REACTION.
--- NOTE | 2019-11-23 18:00 | NUR ---
END OF TRANSFUSION SECOND UNIT PLATELETS COMPLETE. VSS AND DOCUMENTED, NO S/S OF TRANSFUSION REACTION NOTED.
[2019-11-23] MEDS: VASOPRESSIN 50 UNITS in D5W 5% 247.5 ML IV SCH (18:45)
[2019-11-23] MEDS: MIDAZOLAM DRIP 50 mg/50mL 50 ML IV SCH (19:53)
--- NOTE | 2019-11-23 20:00 | NUR ---
OPEN ASSUMED CARE OF MALE PT ORALLY INTUBATED. PT SEDATED ON FENTANYL GTT 150 MCG/HR. PT ATTEMPTS TO OPEN EYES DURING TURNING AND ORAL CARE. SR ON HEALTH INFORMATION TECH WITH 1ST DEGREE AV BLOCK. LEVOPHED GTT RUNNING AT 8 MCG/MIN, DOPAMINE GTT AT 5 MCG/KG/MIN. OGT IN PLACE TO L.I.S. WITH COFFEE GROUND DRAINAGE. PT ON PROTONIX GTT 10 ML/HR. GTT'S INFUSING INTO R. FEM TLC. WITH CDI DRESSING. L. UPPER ARM ARTERIAL LINE IN PLACE WITH GOOD WAVEFORM OBSERVED. PT HYPOTHERMIC WITH WARMING MEASURES IN PLACE. PT WITH JAUNDICE SCLERA. PT WITH HX SKIN CANCER. OBSERVED TO HAVE SEVERAL LESIONS. SEE SKIN AND WOUND ASSESSMENTS. PT WITH WEEPING OPEN LESIONS/TEARS TO SOFY ARMS. ARMS DRESSED WITH OPTIFOAM NON ADHERENT DRESSING, SECURED WITH KERLIX WRAP. LAMAS TO GRAVITY DRAINING DARK HOLLIE URINE CLOUDY IN APPEARANCE. SOFY SCD'S IN PLACE. NON BLANCHING PURPLE AREA TO R. THIRD TOE. EXCORIATION TO INTRAGLUTEAL FOLDS WITH Z GUARD BARRIER OINTMENT IN PLACE. BONY PROMINENCES AND SOFY HEELS OFFLOADED WITH PILLOWS. NO INDICATION OF PAIN OBSERVED. BED IN LOWEST LOCKED POSITION. SIDE RAILS UP X 2. PT IN FULL VIEW OF RN STATION. WILL CONTINUE TO MONITOR.
--- NOTE | 2019-11-23 21:40 | NUR ---
Respiratory note: TITRATED FIO2 TO 35%, PATIENT TOLERATING WELL.
--- NOTE | 2019-11-23 23:40 | NUR ---
Respiratory note: TITRATED FIO2 TO 30%, PATIENT TOLERATING WELL.
[2019-11-24] VITALS (105 sets, daily range): BP systolic 77–158; BP diastolic 45–66
[2019-11-24] MEDS: fentaNYL Drip 2500mCg/250mlNS 250 ML IV SCH
[2019-11-24] MEDS: ACCU-CHEK COMFORT CURVE STRIP VI SCH ×4 (00:16→17:16)
[2019-11-24] MEDS: PANTOPRAZOLE 40mg/50ML NS AE 50 ML IV SCH ×5 (01:30→22:20)
--- NOTE | 2019-11-24 02:00 | NUR ---
WOUND CARE WOUND CARE PROVIDED TO SOFY OPEN ULCERS. SOILED DRESSINGS REMOVED. WOUNDS CLEANSED WITH WOUND CLEANSE SPRAY. PAT DRY WITH STERILE 4X4'S. NON ADHERENT OPTIFOAM DRESSINGS APPLIED. RE-ENFORCED WITH ABD PADS AND SECURED WITH KERLIX WRAP. NEW OPTIFOAM AND ZGAURD BARRIER OINTMENT APPLIED TO SACRAL AREA AFTER CLEANSING.
--- NOTE | 2019-11-24 02:30 | NUR ---
BED BATH AND LINEN CHANGE PROVIDED
[2019-11-24] MEDS: PHENYLEPHRINE IV 250 ML IV SCH ×3 (03:07→19:47)
[2019-11-24 03:58] LABS: Hemoglobin 9.1 g/dL (13.5-17.5)
[2019-11-24 04:02] LABS: Hematocrit 25.8 % (41.0-53.0); Mean Corpuscular Hemoglobin 28.1 pg (28.0-32.0); Mean Corpuscular Hgb Conc. 35.3 g/dL (32.0-36.0); Mean Corpuscular Volume 79.6 fL (80.0-100.0); Platelet Count (auto) 37 10^3/uL (140-450); Red Blood Cells 3.24 10^6/uL (4.5-5.90); Red Cell Distribution Width 17.1 % (11.8-14.3)
[2019-11-24 04:07] LABS: White Blood Cell 1.8 10^3/uL (4.4-10.8)
[2019-11-24 04:09] LABS: Band Neutrophils % (manual) 0; Basophils % (manual) 0 (0.0-2.0); Blast Cells 0; Eosinophils % (manual) 0 (0-7); Metamyelocytes % 0; Myelocytes % 0; Promyelocytes % 0; Reactive Lymphocytes 0
[2019-11-24 04:41] LABS: BUN/Creatinine Ratio 15.4; Magnesium 1.9 mg/dL (1.6-2.6); Potassium 5.2 mmol/L (3.5-5.1)
[2019-11-24 04:43] LABS: Lymphocytes % (manual) 10 (10.0-50.0); Monocytes % (manual) 8 (0-12)
[2019-11-24 04:49] LABS: Calcium 5.4 mg/dL (8.5-10.1)
[2019-11-24] MEDS: InsuLIN REG 1unit/0.01ml Soln (100units/ml) SC SCH ×4 (06:00→17:16)
[2019-11-24] MEDS: MEROPENEM 500MG IVPB 50 ML IV SCH ×2 (06:18→17:02)
--- NOTE | 2019-11-24 09:00 | NUR ---
WOUND CARE PERFORMED BY AIR LIFT OPERATOR OMAR BELLE ORDERED BY MD AND WOUND CARE NURSE TO BILATERAL UPPER EXTREMITIES. AREA CLEANSED WITH WOUND CLEANSER, DRESSED WITH OPTIFOAM AND KERLIX. PATIENT TOLERATED WELL.
--- NOTE | 2019-11-24 09:45 | NUR ---
Family updated on pt status Family of DILLON SUNG updated on patient's status and condition after password verification. All questions and concerns addressed. Jinny, patient's granddaughter verbalized understanding.
[2019-11-24] MEDS: AZITHROMYCIN 500MG/ 250ML 250 ML IV SCH (10:41)
[2019-11-24] MEDS: THIAMINE 100mg/ml INJ (200mg/2ml VIAL) IV SCH (10:43)
[2019-11-24] MEDS: FILGRASTIM(TBO) 480 MCG/0.8 ML SYRG SC SCH (10:44)
[2019-11-24] MEDS: MULTIPLE VITAMIN TAB PO SCH (10:44)
[2019-11-24] MEDS: FOLIC ACID 1 MG TAB PO SCH (10:45)
[2019-11-24] MEDS: DOPamine 1600MCG/ML D5W 250 ML IV SCH (10:46)
[2019-11-24] MEDS ORDERED: CALCIUM GLUC 4.65meq/50ml D5AE 50 ML IV ONE (16:00)
[2019-11-24] MEDS ORDERED: SODIUM CHLORIDE 0.9% 1,000 ML IV ONE (16:00)
--- NOTE | 2019-11-24 18:30 | NUR ---
SPOKE WITH DR ALTMAN/DR JOHNIE ALTMAN ASSESSED PATIENT'S CHART AND ORDERS RECEIEVD FOR CPAP TRAIL IN AM. CALL RECEIVED FROM DR JOHNIE JETT ORDERED CONSENT FOR DIALYSIS CATHETER INSERTION AND HE WILL ORDER DIALYSIS TOMORROW. DR ALTMAN NOTIFIED AND STATED HE WILL INSERT CATHETER TOMORROW.
[2019-11-24] MEDS: VASOPRESSIN 50 UNITS in D5W 5% 247.5 ML IV SCH (18:42)
--- NOTE | 2019-11-24 18:46 | NUR ---
Respiratory note: CHANGED RR TO [address] ALTMAN AT THIS TIME
--- NOTE | 2019-11-24 19:30 | NUR ---
REPORT RECEIVED AND ASSUMED CARE; SEE INTERVENTIONS FOR ASSESSMENT; SEE IV SPREADSHEET FOR GTTS; SBP LOW AND TITRATING LEVOPHED GTT FOR SUPPORT; ALL OTHER VITAL SIGNS STABLE; T=96.1 RECTALLY AND STARTED WARMING MEASURES; WILL CONT. TO MONITOR.
[2019-11-24] MEDS: MIDAZOLAM DRIP 50 mg/50mL 50 ML IV SCH (19:53)
[2019-11-25] VITALS (107 sets, daily range): BP systolic 82–151; BP diastolic 40–70
[2019-11-25] MEDS: PANTOPRAZOLE 40mg/50ML NS AE 50 ML IV SCH ×2 (02:30→08:00)
[2019-11-25] MEDS: PHENYLEPHRINE IV 250 ML IV SCH ×2 (04:07→12:27)
[2019-11-25] MEDS: ACCU-CHEK COMFORT CURVE STRIP VI SCH ×4 (06:00→18:21)
[2019-11-25] MEDS: InsuLIN REG 1unit/0.01ml Soln (100units/ml) SC SCH ×4 (06:00→18:00)
[2019-11-25] MEDS: MEROPENEM 500MG IVPB 50 ML IV SCH ×2 (06:00→18:21)
[2019-11-25 07:16] LABS: BUN/Creatinine Ratio 16.3
[2019-11-25] MEDS: DOPamine 1600MCG/ML D5W 250 ML IV SCH ×2 (07:22→18:23)
[2019-11-25 07:48] LABS: Calcium 5.2 mg/dL (8.5-10.1); Potassium 5.8 mmol/L (3.5-5.1)
--- NOTE | 2019-11-25 08:21 | NUR ---
BLOOD BANK CALL; Spoke with blood bank, states that there are no units of platelets in house and that they will be ordered STAT which usually takes 3-4 hours.
--- NOTE | 2019-11-25 09:13 | NUR ---
AT BEDSIDE; Dr. Quan at bedside, informed him that dialysis catheter is pending insertion as we are waiting arrival of platelets from outside of facility. Orders received.
[2019-11-25] MEDS ORDERED: DEXTROSE (50%) 50ML SYRG IV ONE (09:15)
[2019-11-25] MEDS ORDERED: InsuLIN REG 1unit/0.01ml Soln (100units/ml) IV ONE (09:15)
--- NOTE | 2019-11-25 09:20 | NUR ---
AT BEDSIDE: Dr. Jordan at bedside orders received.
[2019-11-25 09:44] LABS: Hematocrit 29.1 % (41.0-53.0)
[2019-11-25] MEDS ORDERED: SODIUM CHL 0.9% 1000 ML BAG XX ONE (09:45)
[2019-11-25 09:46] LABS: Hemoglobin 10.2 g/dL (13.5-17.5); Mean Corpuscular Hemoglobin 28.2 pg (28.0-32.0); Mean Corpuscular Hgb Conc. 34.9 g/dL (32.0-36.0); Mean Corpuscular Volume 80.8 fL (80.0-100.0); Platelet Count (auto) 26 10^3/uL (140-450); Red Blood Cells 3.61 10^6/uL (4.5-5.90); Red Cell Distribution Width 17.1 % (11.8-14.3)
[2019-11-25 09:49] LABS: White Blood Cell 1.7 10^3/uL (4.4-10.8)
[2019-11-25] MEDS ORDERED: CEFTAROLINE 600 MG IV SCH (10:00)
[2019-11-25] MEDS ORDERED: VANCOMYCIN 500 MG in D5W 5% 100 ML IV ONE (10:00)
[2019-11-25] MEDS: MULTIPLE VITAMIN TAB PO SCH (10:13)
[2019-11-25] MEDS: THIAMINE 100mg/ml INJ (200mg/2ml VIAL) IV SCH (10:13)
[2019-11-25] MEDS: FILGRASTIM(TBO) 480 MCG/0.8 ML SYRG SC SCH (10:15)
[2019-11-25] MEDS: FOLIC ACID 1 MG TAB PO SCH (10:15)
--- NOTE | 2019-11-25 10:45 | NUR ---
MD PHONE CALL; Received phone call from Dr. Omar Westbrook, orders received for tube feeding and labs.
[2019-11-25] MEDS ORDERED: Jevity 1.2 Cal/Fiber 1 Liter GT SCH (11:00)
[2019-11-25] MEDS: AZITHROMYCIN 500MG/ 250ML 250 ML IV SCH (11:00)
[2019-11-25 11:04] LABS: Albumin 1.9 g/dL (3.4-5.0)
[2019-11-25] MEDS: NOREPINEPHRINE 8 MG/250ML KIT 250 ML IV SCH ×2 (11:04→18:23)
[2019-11-25 11:07] LABS: Bilirubin, Total 13.8 mg/dL (0.2-1.0); Total Protein 3.7 g/dL (6.4-8.2)
[2019-11-25 11:16] LABS: Calcium 5.4 mg/dL (8.5-10.1); Potassium 5.9 mmol/L (3.5-5.1)
[2019-11-25 11:19] LABS: % Iron Saturation 112.7 % (20-55)
[2019-11-25 11:26] LABS: INR 2.3 (0.9-1.15); Partial Thromboplastin Time 42.7 sec (23.64-32.05)
[2019-11-25] MEDS ORDERED: VANCOMYCIN PER PHARMACY 0 MG IV SCH (11:30)
[2019-11-25 11:32] LABS: Basophils % (manual) 0 (0.0-2.0); Eosinophils % (manual) 0 (0-7); Metamyelocytes % 0; Myelocytes % 0; Promyelocytes % 0; Reactive Lymphocytes 0
[2019-11-25 11:38] LABS: Band Neutrophils % (manual) 3; Blast Cells 2; Lymphocytes % (manual) 1 (10.0-50.0); Monocytes % (manual) 61 (0-12)
--- NOTE | 2019-11-25 12:50 | NUR ---
DIALYSIS CATHETER INSERTION: Dr. Ramos at bedside for dialysis catheter insertion. Catheter inserted to right IJ via ultrasound guidance. Platelets infusing during procedure, patient with some bleeding noted from insertion site. Manual pressure held, hemostatic dressing (surgicel) applied to site, pressure dressing applied.
--- NOTE | 2019-11-25 13:15 | NUR ---
DIALYSIS CATHETER DRESSING; Pressure dressing removed from catheter site, no bleeding noted. Area cleansed, bio-patch and fresh dressing applied.
--- NOTE | 2019-11-25 13:30 | NUR ---
Nutrition Follow-up Wt.: 81.3 kg Pt is sedated, intubated, receiving artificial ventilation. EN support with Jevity 1.2 Elvin was held when rounded this morning. Noted new MD order (11/24) to resume EN support with Jevity 1.2 Elvin. Will continue to monitor NPO status, skin status, pertinent labs and weight trends. Will f/u in 2 to 3 days. Est energy needs: 6079-8869 kcals (23-25 kcal/kgBW) Est protein needs: 59-73 gms/day (0.8-1.0 gm/kgBW) Labs 11/24: Na 121 L, K 5.8 H, BUN 105 H, Cr 6.45 H, Glucose 135 H, POC 131 H, Ca 5. L. Skin: Rj scale 9, high risk, cancerous tumor to L shoulder, Intragluteal MASD. PES: 1) Inadequate nutrient intake r/t current nutrient needs aeb pt sedated, intubated & NPO status. 2) Altered nutrition related lab values r/t current chronic medical condition aeb hyponatremia, hypochloremia, elevated RFTs, low GFR, elevated LFTs, hypocalcemia, hyperphosphatemia,elevated bilirubin, hypoproteinemia, hypoalbuminemia Recommendations: 1) Consider to resume EN nutrition support with Jevity 1.2 @60 ml/hr goal rate 3) Consider a daily MVI with 500mg Vitamin C BID 4) Gradually advance pt to Renal Specific oral diet when medically feasible and as tolerated 5) Continue current plan of care
--- NOTE | 2019-11-25 18:09 | NUR ---
Respiratory note: RECEIVED PT ON VENT V19, ETT TO VENT. VENT CONNECTED TO RED OUTLET AND O2 SOURCE. ALARMS ARE SET AND AUDIBLE. AMBU BAG AND MASK AT BEDSIDE BS ARE DIMINISHED T/O, NO SX DONE AT THIS TIME. RT NAME AND PAGER ASSIGNMENT WRITTEN ON PTS ROOM BOARD. WILL CONTINUE TO MONITOR Q2H VENT CHECKS AND MORE NEEDED.
[2019-11-25] MEDS: fentaNYL Drip 2500mCg/250mlNS 250 ML IV SCH (18:22)
[2019-11-25] MEDS: VASOPRESSIN 50 UNITS in D5W 5% 247.5 ML IV SCH (18:30)
--- NOTE | 2019-11-25 19:30 | NUR ---
REPORT RECEIVED AND ASSUMED CARE; SEE INTERVENTIONS FOR ASSESSMENT; SEE IV SPREADSHEET FOR GTTS; WILL CONT. TO MONITOR.
--- NOTE | 2019-11-25 20:01 | NUR ---
Respiratory note: AT BEDSIDE FOR ROUTINE VENT CHECK. NO VENT CHANGES MADE. PT BEGINNING TO RAISE HANDS UP AND DOWN. WILL CONTINUE TO MONITOR.
[2019-11-25] MEDS ORDERED: EPOETIN ALFA 10,000 UNIT/1 ML VIAL SC ONE (21:00)
--- NOTE | 2019-11-25 21:59 | NUR ---
Respiratory note: AT BEDSIDE FOR ROUTINE VENT CHECK. NO VENT CHANGES MADE. BS ARE DIMINISHED T/O NO SX DONE AT THIS TIME. PTS CURRENT TEMP IS 97.9F. WILL CONTINUE TO MONITOR.
[2019-11-25] MEDS ORDERED: VANCOMYCIN 1GM/250ML 250 ML IV ONE (22:00)
[2019-11-26] VITALS (104 sets, daily range): BP systolic 55–145; BP diastolic 29–75
--- NOTE | 2019-11-26 00:07 | NUR ---
Respiratory note: AT BEDSIDE FOR ROUTINE VENT CHECK. NO VENT CHANGES MADE. SX CATHETER AND HME CHANGED AT THIS TIME. PTS CURRENT TEMP IS 97.9F. WILL CONTINUE TO MONITOR.
[2019-11-26] MEDS: LORazepam 2MG/ML-1ML VIAL IV PRN ×2 (00:33→21:06)
--- NOTE | 2019-11-26 00:33 | NUR ---
PT. AGITATED, IN SVT 130'S, SBP IN LOW 80'S-MAXED ON FENTANYL GTT AND RESTLESS WITH FACIAL GRIMACING; WILL TRY ATIVAN IVP AND CONT. TO MONITOR.
--- NOTE | 2019-11-26 00:53 | NUR ---
PT. RESTING COMFORTABLE WITH NO S/S OF AGITATION; HR IN THE 80'S AND SBP 99/56; WILL CONT. TO MONITOR.- PT. RECEIVED ATIVAN 1MG IVP; SEE EMAR.
[2019-11-26] MEDS: ACCU-CHEK COMFORT CURVE STRIP VI SCH ×4 (01:20→17:59)
[2019-11-26] MEDS: InsuLIN REG 1unit/0.01ml Soln (100units/ml) SC SCH ×4 (01:20→18:00)
--- NOTE | 2019-11-26 01:57 | NUR ---
Respiratory note: AT BEDSIDE FOR ROUTINE VENT CHECK. BS ARE COURSE SXD FOR THIN BLOODY SECRETIONS. RN ROBYN AWARE OF BLOODY RETURN. NO VENT CHANGES MADE. PTS CURRENT TEMP IS 97.7F. WILL CONTINUE TO MONITOR.
--- NOTE | 2019-11-26 04:01 | NUR ---
Respiratory note: AT BEDSIDE FOR END OF SHIFT VENT CHECK. NO VENT CHANGES MADE. PTS CURRENT TEMP IS 97.7F. WILL HAVE DAY SHIFT CONTINUE POC.
[2019-11-26 04:02] LABS: Hemoglobin 8.3 g/dL (13.5-17.5)
[2019-11-26 04:03] LABS: Hematocrit 23.9 % (41.0-53.0); Mean Corpuscular Hemoglobin 27.9 pg (28.0-32.0); Mean Corpuscular Hgb Conc. 34.9 g/dL (32.0-36.0); Mean Corpuscular Volume 79.9 fL (80.0-100.0); Platelet Count (auto) 35 10^3/uL (140-450); Red Blood Cells 2.99 10^6/uL (4.5-5.90); Red Cell Distribution Width 16.8 % (11.8-14.3)
[2019-11-26 04:19] LABS: BUN/Creatinine Ratio 15.9; Magnesium 2.2 mg/dL (1.6-2.6); Phosphorus 7.5 mg/dL (2.5-4.90); Potassium 4.5 mmol/L (3.5-5.1)
[2019-11-26 04:27] LABS: Albumin 1.7 g/dL (3.4-5.0); Bilirubin, Direct 9.9 mg/dL (0-0.2); White Blood Cell 1.1 10^3/uL (4.4-10.8)
[2019-11-26 04:28] LABS: Basophils % (manual) 0 (0.0-2.0); Blast Cells 0; Calcium 5.3 mg/dL (8.5-10.1); Eosinophils % (manual) 0 (0-7); Myelocytes % 0; Reactive Lymphocytes 0
[2019-11-26 04:30] LABS: Bilirubin, Total 12.4 mg/dL (0.2-1.0); Total Protein 3.4 g/dL (6.4-8.2)
[2019-11-26 05:11] LABS: Band Neutrophils % (manual) 14; Lymphocytes % (manual) 10 (10.0-50.0)
[2019-11-26 05:12] LABS: Metamyelocytes % 2; Monocytes % (manual) 46 (0-12)
[2019-11-26] MEDS: MEROPENEM 500MG IVPB 50 ML IV SCH ×2 (06:00→17:59)
[2019-11-26 06:54] LABS: Hepatitis A Ab IgM Negative; Hepatitis B Core IgM Negative
[2019-11-26 06:55] LABS: Hepatitis B Surface Antigen Negative (Negative); Hepatitis C Antibody Negative (Negative)
[2019-11-26] MEDS ORDERED: SODIUM CHL 0.9% 1000 ML BAG XX ONE (07:00)
[2019-11-26 07:03] LABS: Hepatitis A Total Antibody Positive; Hepatitis B Core Total AB Negative
[2019-11-26 07:04] LABS: Hepatitis B Surface Antigen Negative (Negative)
[2019-11-26 07:05] LABS: Hepatitis C Antibody Negative (Negative)
--- NOTE | 2019-11-26 07:30 | NUR ---
REPORT REPORT RECEIVED FROM ROBYN JULES RN. BEDSIDE CHECK DONE.
--- NOTE | 2019-11-26 07:50 | NUR ---
ASSESSMENT PT RESTING IN BED WITH EYES CLOSED. CURRENTLY RECEIVING HEMODIALYSIS TO ACCESS ON HIS RIGHT JUGULAR, SITE BENIGN. ON THE VENTILATOR WITH SETTINGS OF: 8 FR ETT/24 AT THE LIP, TV 450, AC 18, 30% FIO2 AND PEEP OF 5. LUNGS CLEAR THROUGHOUT WITH DIMINISHED AT THE BASES. O2 SAT FO 98. RIDING THE VENT. TELE ST 118. PALPABLE PULSES TO ALL EXTREMITIES. LEFT AXILLA A LINE ZEROED. SITE CLEAR. +2 PITTING EDEMA TO FET, ANKLES AND HANDS. DRESSINGS IN PLACE TO BILATERAL FOREARMS WITH STRAW AND SEROSANGUINOUS DRAINAGE NOTED. SCDS TO BLE. ABD SOFT WITH HYPOACTIVE BOWEL SOUNDS. OGT WITH + PLACEMENT AND 75 ML RESIDUAL . FEEDINGS OFF CURRENTLY. LAMAS WITH SMALL AMOUNT OF CLEAR YELLOW URINE. REPOSITIONED TO HIS BACK. CONTINUE TO MONITOR.
[2019-11-26] MEDS: MIDAZOLAM DRIP 50 mg/50mL 50 ML IV SCH ×2 (08:00→19:53)
[2019-11-26] MEDS: PHENYLEPHRINE IV 250 ML IV SCH ×2 (08:00→13:27)
--- NOTE | 2019-11-26 08:00 | NUR ---
Respiratory note: UNABLE TO DRAW MORNING ABG, PT CURRENTLY ON DIALYSIS. WILL RETURN WHEN DIALYSIS IS COMPLETE. OMAR RAINEY MADE AWARE.
--- NOTE | 2019-11-26 09:00 | NUR ---
TITRATING LEVOPHED NEEDED TO MAINTAIN BP AND ALLOW FLUID REMOVAL.
--- NOTE | 2019-11-26 10:00 | NUR ---
HDX COMPLETED WITH ONLY 150 ML REMOVED.
[2019-11-26 11:20] LABS: Hepatitis B Surface Antibody Negative
--- NOTE | 2019-11-26 12:30 | NUR ---
ACCUCHECK OF 114 AND NO COVERAGE NEEDED.
[2019-11-26] MEDS: THIAMINE 100mg/ml INJ (200mg/2ml VIAL) IV SCH (12:42)
[2019-11-26] MEDS: MULTIPLE VITAMIN TAB PO SCH (12:42)
[2019-11-26] MEDS: FOLIC ACID 1 MG TAB PO SCH (12:42)
[2019-11-26] MEDS: AZITHROMYCIN 500MG/ 250ML 250 ML IV SCH (12:42)
[2019-11-26] MEDS: DOPamine 1600MCG/ML D5W 250 ML IV SCH (14:30)
--- NOTE | 2019-11-26 16:00 | NUR ---
DR ALTMAN WANTS A CPAP TRIAL IN THE AM AND SEDATION TO BE TAPERED OFF IN THE AM.
[2019-11-26] MEDS: fentaNYL Drip 2500mCg/250mlNS 250 ML IV SCH (17:21)
--- NOTE | 2019-11-26 18:00 | NUR ---
DRESSING CHANGES DONE PER MD ORDER TO LACERATION AND SKIN TERAS TO BILATERAL FOREARMS.
[2019-11-26] MEDS: VASOPRESSIN 50 UNITS in D5W 5% 247.5 ML IV SCH (18:06)
--- NOTE | 2019-11-26 19:30 | NUR ---
REPORT REPORT GIVEN TO DHARA RNROBYN. BEDSIDE CHECK DONE.
[2019-11-26] MEDS ORDERED: EPOETIN ALFA 10,000 UNIT/1 ML VIAL SC ONE (21:00)
[2019-11-27] VITALS (103 sets, daily range): BP systolic 91–152; BP diastolic 51–103
[2019-11-27] MEDS: InsuLIN REG 1unit/0.01ml Soln (100units/ml) SC SCH ×4 (00:45→18:00)
[2019-11-27] MEDS: ACCU-CHEK COMFORT CURVE STRIP VI SCH ×4 (00:45→18:00)
--- NOTE | 2019-11-27 02:54 | NUR ---
REPORT GIVEN TO OMAR SALGUERO.
--- NOTE | 2019-11-27 03:00 | NUR ---
REPORT IS RECEIVED FROM ROBYN NELSON. ASSUMED CARE. ASSESSMENT DONE. PATIENT OPEN EYES SPONTANEOUSLY, MOVES UPPER EXTREMITIES, POSITIVE GAG AND COUGH. EKG SHOWS SR. COARSE LUNG SOUNDS. TUBE FEEDING IS ON HOLD, WILL RESTART FEEDING. HYPOACTIVE BOWEL SOUNDS. PATIENT IS OLIGURIC. DRIPS LEVOPHED 10 MCG/MIN, DOPAMINE 5MCG/KG/MIN, FENT 200MCG/HR.
--- NOTE | 2019-11-27 03:30 | NUR ---
Patient bathe/linen change/dressing change Patient given complete bath. Skin integrity assessed for any changes. Linens changed. Patient repositioned for comfort. dressing change done on lt.forearm, rt.forearm wound sites.
[2019-11-27] MEDS: LORazepam 2MG/ML-1ML VIAL IV PRN ×2 (04:36→19:56)
--- NOTE | 2019-11-27 04:36 | NUR ---
ATIVAN IS GIVEN PATIENT IS VERY RESTLESS AND TACHYCARDIC AFTER THE BATH. ATIVAN 1 MG IV GIVEN.
[2019-11-27] MEDS: fentaNYL Drip 2500mCg/250mlNS 250 ML IV SCH (04:45)
[2019-11-27] MEDS: NOREPINEPHRINE 8 MG/250ML KIT 250 ML IV SCH ×2 (04:49→22:21)
[2019-11-27] MEDS: MEROPENEM 500MG IVPB 50 ML IV SCH ×2 (05:54→18:00)
[2019-11-27] MEDS: PHENYLEPHRINE IV 250 ML IV SCH (06:07)
[2019-11-27 06:19] LABS: Hematocrit 26.1 % (41.0-53.0); Mean Corpuscular Hemoglobin 27.7 pg (28.0-32.0); Mean Corpuscular Hgb Conc. 34.4 g/dL (32.0-36.0); Mean Corpuscular Volume 80.5 fL (80.0-100.0); Platelet Count (auto) 21 10^3/uL (140-450); Red Blood Cells 3.24 10^6/uL (4.5-5.90); Red Cell Distribution Width 16.8 % (11.8-14.3)
[2019-11-27 06:23] LABS: Basophils % (manual) 0 (0.0-2.0); Blast Cells 0; Eosinophils % (manual) 0 (0-7); Metamyelocytes % 0; Myelocytes % 0; Promyelocytes % 0; Reactive Lymphocytes 0; White Blood Cell 1.2 10^3/uL (4.4-10.8)
[2019-11-27 06:26] LABS: BUN/Creatinine Ratio 14.6; Potassium 4.2 mmol/L (3.5-5.1)
[2019-11-27 07:40] LABS: Band Neutrophils % (manual) 5; Lymphocytes % (manual) 24 (10.0-50.0); Monocytes % (manual) 54 (0-12)
--- NOTE | 2019-11-27 08:00 | NUR ---
ASSESSMENT DONE. NG FEED WITH HIGH RESIDUAL, FEEDING STOPPED. OOZING SEROUS FROM BOTH ARMS. WEAK COUGH REFLEX. WILL MOVE ARMS SPONT WITHOUT PURPOSE. CLAUDNIE RT IJ SECURE. MOUTH WITH BLOODY SECRETIONS, NONE FROM ETT.
[2019-11-27] MEDS: MULTIPLE VITAMIN TAB PO SCH (10:00)
--- NOTE | 2019-11-27 10:00 | NUR ---
NG RESIDUAL 0, FEEDING RESTARTED AT 10ML/HR
[2019-11-27] MEDS: AZITHROMYCIN 500MG/ 250ML 250 ML IV SCH (10:16)
[2019-11-27] MEDS: THIAMINE 100mg/ml INJ (200mg/2ml VIAL) IV SCH (10:16)
[2019-11-27] MEDS: FOLIC ACID 1 MG TAB PO SCH (10:16)
--- NOTE | 2019-11-27 12:00 | NUR ---
NG RESIDUAL O, FEEDING CONT AT 10ML. DR. YANEZ CALLED FOR UPDATE, LABS ORDERED FOR AM
--- NOTE | 2019-11-27 12:34 | NUR ---
DR. BOYLE CALLED FOR UPDATE. ORDERS REC'D
[2019-11-27] MEDS ORDERED: ACETAMINOPHEN 650 mg PER 20 mL UD ONE (14:14)
[2019-11-27] MEDS: DOPamine 1600MCG/ML D5W 250 ML IV SCH (14:34)
--- NOTE | 2019-11-27 15:28 | NUR ---
Nutrition Follow-up Wt.: 87.0 kg Pt is sedated, intubated, receiving artificial ventilation. EN support with Jevity 1.2 Elvin running @ 10 ml/hr when rounded this morning. Pt with no noted distress per RN doc. Will continue to monitor NPO status, skin status, pertinent labs and weight trends. Will f/u in 2 to 3 days. Est energy needs: 7330-1807 kcals (23-25 kcal/kgBW) Est protein needs: 59-73 gms/day (0.8-1.0 gm/kgBW) Labs 11/26: Na 132 L, Cl 96 L, BUN 68 H, Cr 4.66 H, Ca 6.0 5. L, Alb 1.7 L, TR 3.4 L GI: Incontinent per RN doc. Skin: Rj scale 9, high risk, cancerous tumor to L shoulder, Intragluteal MASD. PES: 1) Inadequate nutrient intake r/t current nutrient needs aeb pt sedated, intubated & NPO status. 2) Altered nutrition related lab values r/t current chronic medical condition aeb hyponatremia, hypochloremia, elevated RFTs, low GFR, elevated LFTs, hypocalcemia, hyperphosphatemia,elevated bilirubin, hypoproteinemia, hypoalbuminemia Recommendations: 1) Consider to resume EN nutrition support with Jevity 1.2 @60 ml/hr goal rate 3) Consider a daily MVI with 500mg Vitamin C BID 4) Gradually advance pt to Renal Specific oral diet when medically feasible and as tolerated 5) Continue current plan of care
--- NOTE | 2019-11-27 15:35 | NUR ---
I SPOKE TO ROBYN, GRANDDAUGHTER ABOUT POC. PER GRS. ALTMAN AND TAMAR, FAMILY SHOULD CONSIDER COMFORT MEASURES. UNABLE TO TRACH AND PEG HIM DUE TO BLEEDING ISSUES. SHE WILL TRY TO CONTACT DR. ALTMAN THEN SPEAK TO HER MOTHER POA ABOUT DNR. SHE SAID PT WOULD NOT WANT TRACH AND PEG.
--- NOTE | 2019-11-27 17:03 | NUR ---
ROBYN, GRANDDAUGHTER [id number]-[phone], MSG LEFT. SHE CALLED BACK AND SPOKE TO DR. ALTMAN AT LENGTH
[2019-11-27] MEDS: VASOPRESSIN 50 UNITS in D5W 5% 247.5 ML IV SCH (18:45)
[2019-11-27] MEDS: MIDAZOLAM DRIP 50 mg/50mL 50 ML IV SCH (19:53)
[2019-11-28] VITALS (105 sets, daily range): BP systolic 53–138; BP diastolic 30–78
[2019-11-28] MEDS: ACCU-CHEK COMFORT CURVE STRIP VI SCH ×3 (00:18→12:18)
--- NOTE | 2019-11-28 03:00 | NUR ---
COOLING MEASURED IMPLEMENTED
[2019-11-28] MEDS: ACETAMINOPHEN 500 MG TAB PO PRN (03:01)
[2019-11-28] MEDS: LORazepam 2MG/ML-1ML VIAL IV PRN ×2 (03:16→08:53)
--- NOTE | 2019-11-28 04:15 | NUR ---
Patient bathe/linen change Patient given complete bath. Skin integrity assessed for any changes. Linens changed. Patient repositioned for comfort.
[2019-11-28] MEDS: fentaNYL Drip 2500mCg/250mlNS 250 ML IV SCH ×2 (05:09→16:04)
[2019-11-28 05:36] LABS: Eosinophils # (auto) 0 10 ^3/uL (0-0.8); Hemoglobin 8.3 g/dL (13.5-17.5); Lymphocytes # (auto) 0 10 ^3/uL (0.4-5.4); Red Blood Cells 2.92 10^6/uL (4.5-5.90)
[2019-11-28 05:41] LABS: Basophils # (auto) 0 10 ^3/uL (0-0.2); Basophils % (auto) 0.2 % (0.0-2.0); Eosinophils % (auto) 0.7 % (0.0-7.0); Hematocrit 23.4 % (41.0-53.0); Lymphocytes % (auto) 4.5 % (10.0-50.0); Mean Corpuscular Hemoglobin 28.3 pg (28.0-32.0); Mean Corpuscular Hgb Conc. 35.4 g/dL (32.0-36.0); Monocytes # (auto) 0 10 ^3/uL (0-1.3); Monocytes % (auto) 6.2 % (0.0-12.0); Neutrophils # (auto) 0.7 10 ^3/uL (1.6-8.6); Neutrophils % (auto) 88.4 % (37.0-80.0); Nucleated Red Blood Cells % 1.7 %; Red Cell Distribution Width 16.9 % (11.8-14.3)
[2019-11-28 05:53] LABS: White Blood Cell 0.8 10^3/uL (4.4-10.8)
[2019-11-28 05:57] LABS: Albumin 1.5 g/dL (3.4-5.0); Potassium 4.4 mmol/L (3.5-5.1)
[2019-11-28 06:00] LABS: BUN/Creatinine Ratio 14.1; Bilirubin, Total 13.4 mg/dL (0.2-1.0); Total Protein 3.3 g/dL (6.4-8.2)
[2019-11-28] MEDS: MEROPENEM 500MG IVPB 50 ML IV SCH (06:00)
[2019-11-28] MEDS: InsuLIN REG 1unit/0.01ml Soln (100units/ml) SC SCH ×3 (06:00→12:00)
[2019-11-28 06:05] LABS: Calcium 5.5 mg/dL (8.5-10.1)
[2019-11-28 06:54] LABS: Platelet Count (auto) 16 10^3/uL (140-450)
--- NOTE | 2019-11-28 07:10 | NUR ---
OPENING NOTE SHIFT REPORT RECEIVED AND ASSUMED CARE OF PT FROM YURI NELSON
--- NOTE | 2019-11-28 09:00 | NUR ---
DR. CASTILLO AT BEDSIDE NO NEW ORDERS AT THIS TIME
--- NOTE | 2019-11-28 09:20 | NUR ---
COOLING MEASURES INITIATED
--- NOTE | 2019-11-28 09:30 | NUR ---
COOLING MEASURES INITIATED
[2019-11-28] MEDS: FOLIC ACID 1 MG TAB PO SCH (10:01)
[2019-11-28] MEDS: THIAMINE 100mg/ml INJ (200mg/2ml VIAL) IV SCH (10:01)
[2019-11-28] MEDS: MULTIPLE VITAMIN TAB PO SCH (10:02)
--- NOTE | 2019-11-28 10:42 | NUR ---
WOUND CARE NOTE: Wound care in to see patient for reevaluation of wounds and skin integrity monitoring. Patient continue resting in ICU bed in Rm. 101. Patient is intubated and mechanically ventilated. Patient appears to be in no pain using Briceno Wayne Faces Pain Scale. His Rj score is 9. Skin/wound assessment done with the assistance of patient's nurse, OMAR Roman. 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 His cancer lesions to L shoulder, L neck and back are scabbed. Back lesion has small serous drainage and staff applying Opti foam gentle dressing to manage drainage.Closed and dry lesions left open to air. Open draining lesions to Rt and L forearm complicates with weeping edema to bilateral arm. Dry patchy skin noted to surrounding skin. Cleansed bilateral arm wounds with wound cleanser,patted dry with gauze, applied Thera honey gauze, covered with Opti lock and secured with stockinette. Patient's sacrum remain intact with mild erythema to perirectal/ moisture associated dermatitis. Venus care given and applied Z Guard cream. New photograph of wounds are taken for reference. Repositioned patient for comfort facing his Rt. side, redistributed pressure points with pillows. Patient tolerated well. OMAR Roman at bedside. RECOMMENDATION: Continuation of all wound care orders prescribed by MD, continue with skin/wound plan of care, continue monitoring by wound care while patient is hospitalized. Addendum: 11/28/19 at 1517 by Carmen Urbina RN Amended: Links added.
--- NOTE | 2019-11-28 11:45 | NUR ---
DECISION MADE REGARDING PT STATUS GRANDDAUGHTER ROBYN CALLED AND DECISION HAS BEEN MADE ON PT STATUS
--- NOTE | 2019-11-28 12:40 | NUR ---
DR. DURÁN AT BEDSIDE ORDERS RECEIVED
[2019-11-28] MEDS ORDERED: VASOPRESSIN 50 UNITS in D5W 5% 247.5 ML IV SCH (13:00)
[2019-11-28] MEDS ORDERED: SODIUM CHLORIDE 0.9% 500 ML IV ONE (13:00)
[2019-11-28] MEDS: NOREPINEPHRINE 8 MG/250ML KIT 250 ML IV SCH (13:29)
--- NOTE | 2019-11-28 15:30 | NUR ---
DR. BOYLE AT BEDSIDE ORDERS RECEIVED
[2019-11-28] MEDS ORDERED: LORazepam 2MG/ML-1ML VIAL IV PRN (19:15)
[2019-11-28] MEDS ORDERED: MORPHINE SULFATE 4 MG/ML SYR/VIAL IV PRN (19:15)
--- NOTE | 2019-11-28 19:30 | NUR ---
CLOSING NOTE SHIFT REPORT GIVEN AND CARE ENDORSED TO ERWIN NELSON
[2019-11-28] MEDS: MIDAZOLAM DRIP 50 mg/50mL 50 ML IV SCH ×4 (20:12→23:56)
[2019-11-28] MEDS ORDERED: EPOETIN ALFA 10,000 UNIT/1 ML VIAL IV ONE (21:00)
--- NOTE | 2019-11-28 21:20 | NUR ---
FAMILY FOR PT. ARRIVED . PROCEDURE FOR WEANING OFF VENT AND MEDS. EXPLAINED. PROCEDURE COMPLETED WITH FAMILY AT BEDSIDE . TOLERATED BY ALL .
[2019-11-29] VITALS: BP 56/28
[2019-11-29 00:15] VITALS: BP 52/26
[2019-11-29 00:30] VITALS: BP 47/25
[2019-11-29 00:45] VITALS: BP 46/25
[2019-11-29 01:00] VITALS: BP 45/23
[2019-11-29 01:15] VITALS: BP 41/21
--- NOTE | 2019-11-29 01:34 | NUR ---
PT . FAMILY AT BEDSIDE .
--- NOTE | 2019-11-29 04:28 | NUR ---
Dr. CASIANO spoke with family regarding wishes to terminally wean patient. Family understands all aspects of weaning and understands that the outcome is . All questions and concerns addressed by Provider and by nursing. Pastoral care offered. Family at bedside. NOTE:
--- NOTE | 2019-11-29 08:07 | NUR ---
SPOKE WITH MICHAEL FROM [facility] INFORMATION ON GIVEN. STATES THEY WILL CALL BACK WITH AN ETA
== END 2019-11-29 09:25 | disposition expired | DRG 870 ==
LOC: ER 06:49 → OVERFLOW 06:50 → ICU WEST 23:37
PROVIDERS: ADMIT Nurse Practitioner Acute Care; ATTEND Internal Medicine
PROC: 0DH67UZ Insertion of Feeding Device into Stomach, Via Natural or Artificial Opening (ICD-10-PCS; principal; 2019-11-20)
PROC: 5A1955Z Respiratory Ventilation, Greater than 96 Consecutive Hours (ICD-10-PCS; 2019-11-20)
PROC: 0BH17EZ Insertion of Endotracheal Airway into Trachea, Via Natural or Artificial Opening (ICD-10-PCS; 2019-11-20)
PROC: 02HV33Z Insertion of Infusion Device into Superior Vena Cava, Percutaneous Approach (ICD-10-PCS; 2019-11-20)
PROC: 02HV33Z Insertion of Infusion Device into Superior Vena Cava, Percutaneous Approach (ICD-10-PCS; 2019-11-21)
PROC: 4A133B1 Monitoring of Arterial Pressure, Peripheral, Percutaneous Approach (ICD-10-PCS; 2019-11-21)
PROC: 02HV33Z Insertion of Infusion Device into Superior Vena Cava, Percutaneous Approach (ICD-10-PCS; 2019-11-25)
PROC: 30233R1 Transfusion of Nonautologous Platelets into Peripheral Vein, Percutaneous Approach (ICD-10-PCS; 2019-11-25)
PROC: B548ZZA Ultrasonography of Superior Vena Cava, Guidance (ICD-10-PCS; 2019-11-25)
PROC: 5A1D70Z Performance of Urinary Filtration, Intermittent, Less than 6 Hours Per Day (ICD-10-PCS; 2019-11-25)
DX: A41.9 Sepsis, unspecified organism (principal); J18.9 Pneumonia, unspecified organism; N17.0 Acute kidney failure with tubular necrosis; R65.21 Severe sepsis with septic shock; I21.4 Non-ST elevation (NSTEMI) myocardial infarction; J96.01 Acute respiratory failure with hypoxia; N18.6 End stage renal disease; E44.0 Moderate protein-calorie malnutrition; J98.11 Atelectasis; D61.818 Other pancytopenia; E87.1 Hypo-osmolality and hyponatremia; E87.2 Acidosis; R64 Cachexia; I48.20 Chronic atrial fibrillation, unspecified; E87.4 Mixed disorder of acid-base balance; K92.2 Gastrointestinal hemorrhage, unspecified; D68.9 Coagulation defect, unspecified; C90.00 Multiple myeloma not having achieved remission; D69.6 Thrombocytopenia, unspecified; M06.9 Rheumatoid arthritis, unspecified; C44.91 Basal cell carcinoma of skin, unspecified; E16.2 Hypoglycemia, unspecified; E86.0 Dehydration; E83.52 Hypercalcemia; I95.9 Hypotension, unspecified; E83.51 Hypocalcemia; E87.5 Hyperkalemia; C80.1 Malignant (primary) neoplasm, unspecified; Z96.641 Presence of right artificial hip joint; W01.0XXA Fall on same level from slipping, tripping and stumbling without subsequent striking against object, initial encounter; M81.0 Age-related osteoporosis without current pathological fracture; Y93.89 Activity, other specified; S72.002D Fracture of unspecified part of neck of left femur, subsequent encounter for closed fracture with routine healing; Y92.091 Bathroom in other non-institutional residence as the place of occurrence of the external cause; Z03.818 Encounter for observation for suspected exposure to other biological agents ruled out; Y99.8 Other external cause status; Z68.34 Body mass index [BMI] 34.0-34.9, adult
CPT/HCPCS: 36415; 36600; 71045; 73080; 73502; 76700; 76775; 80048; 80053; 80074; 80076; 80202; 81001; 82570; 82784; 82805; 82962; 83036; 83540; 83550; 83605; 83615; 83735; 83935; 84100; 84156; 84300; 84443; 84484; 85007; 85025; 85027; 85379; 85610; 85652; 85730; 86141; 86704; 86706; 86708; 86803; 86850; 86900; 86901; 87040; 87070; 87081; 87086; 87205; 87340; 87449; 87804; 87880; 90935; 93005; 93306; 94002; 94003; 96365; 96367; 96375; C9113; G0378; J0330; J0610; J0696; J0885; J1447; J1642; J1815; J2185; J2250; J2405; J3430; J3490; J7060; P9047